=== PATIENT | female | born 1995 | race Caucasian/White ===

== ENCOUNTER 2017-02-26 10:49 | Emergency (ER) | payer OTHER ==
[2017-02-26 10:56] VITALS: BP 123/66
--- NOTE | 2017-02-26 11:23 | ED Physician Documentation ---
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 It has been getting progressively worse over the past 2-1/2 months. She denies any specific injury. [place] ibuprofen and referred to a specialist. She presents now because of increasing pain in her toe. She denies history of similar symptoms in the past. Review of Systems Constitutional: denies: Fever Skin: denies: Rash Musculoskeletal: reports: Extremity pain (Left great toe.) Neurologic: denies: Focal weakness, Numbness PD PAST MEDICAL HISTORY - Past Medical History Past Medical History: No Endocrine/Autoimmune: None - Past Surgical History Past Surgical History: Yes - Present Medications Home Medications: Ambulatory Orders Medication Instructions Recorded Confirmed HYDROcod/ACETAM 5/325 [Ruby 5/325] 1 tab PO Q6H PRN 02/26/17 02/26/17 - Allergies Allergies/Adverse Reactions: Allergies Allergy/AdvReac Type Severity Reaction Status Date / Time No Known Drug Allergies Allergy Verified 02/26/17 10:56 - Social History Does the pt smoke?: No Smoking Status: Never smoker Does the pt drink ETOH?: No Does the pt have substance abuse?: No - Immunizations Immunizations are current?: Yes - POLST Patient has POLST: No PD ED PE NORMAL - Vitals Vital signs reviewed: Yes (normal) - General General: Alert and oriented X 3, Well developed/nourished - HEENT HEENT: Atraumatic - Respiratory Respiratory: No respiratory distress - Derm Derm: No rash - Extremities Extremities: Other (There is swelling of the soft tissue around the distal aspect of the left great toe, more on the medial than the lateral side, consistent with ingrown toenail.) - Neuro Neuro: Alert and oriented X 3, No motor deficit, No sensory deficit Results - Vitals Vitals: Oxygen O2 Source Room air Procedures - General procedure General procedure: Procedure: Excision of ingrown toenail left great toe. Anesthesia: 2% lidocaine digital block. Complications: none - Regional nerve block Nerve block site: Digital - note digit(s) (left great toe) Right / left: Left Nerve block anesthesia: Lidocaine 2% Nerve block aftercare: Excellent anesthesia, Patient tolerated well, No complications PD MEDICAL DECISION MAKING - ED course Complexity details: considered differential, d/w patient ED course: The patient's presentation is significant for ingrown toenail of the left great toe. There is no abscess detected. Treatment in the emergency department included digital block followed by excision of the ingrown toenail. The patient tolerated the procedure well. I discussed with her the expected course of healing, symptomatic treatment and outpatient follow-up, as well as potentially worrisome signs or symptoms that should prompt reevaluation in the emergency department. Departure - Departure Disposition: 01 Home, Self Care Clinical Impression: Ingrown left big toenail Condition: Stable Instructions: ED Ingrown Toenail Excised Follow-Up: ROSE Hearn [Provider Group] Comments: Soak your left foot in warm water at least twice daily for the next week. Keep your left leg elevated as much the time as possible. You can use Tylenol or ibuprofen if needed for discomfort. Follow up with your primary physician within 2 weeks. Call to schedule appointment. Return to the emergency department if you develop increasing redness or swelling of your toe, or otherwise worsening symptoms. Forms: Activity restrictions Discharge Date/Time: 02/26/17 12:06
== END 2017-02-26 12:06 | disposition home or self-care (01) ==
LOC: ED 10:49
DX: L60.0 Ingrowing nail (principal)
CPT/HCPCS: 11765; 99282

== ENCOUNTER 2017-11-01 13:00 | Emergency (ER) | payer OTHER ==
[2017-11-01] MEDS ORDERED: DEXAMETHASONE 10 MG/ML VIAL PO STA (13:44)
[2017-11-01] MEDS ORDERED: CHERRY SYRUP 10 ML UDC PO ONE (14:05)
--- NOTE | 2017-11-01 14:09 | ED Physician Documentation ---
PD HPI HEENT - Stated complaint Stated Complaint: THROAT PX/FEVER - Chief complaint Chief Complaint: Heent - History obtained from History obtained from: Patient, Family - History of Present Illness Timing - onset: How many days ago (3) Timing - duration: Days (3) Timing - details: Gradual onset, Still present Location: Throat Improves: Medication Worsens: Swalllowing Associated symptoms: Congestion, Swollen nodes, Cough Similar symptoms before: Diagnosis (strep) Recently seen: Not recently seen - Additional information Additional information: 22-year-old female has developed a sore throat some trouble swallowing. She has not had much in way of a fever has had a slight cough. Review of Systems Constitutional: denies: Fever Eyes: denies: Decreased vision Ears: denies: Ear pain Nose: reports: Congestion Throat: reports: Sore throat Cardiac: denies: Chest pain / pressure, Palpitations Respiratory: reports: Cough. denies: Dyspnea GI: denies: Vomiting PD PAST MEDICAL HISTORY - Past Medical History Past Medical History: No Endocrine/Autoimmune: None - Past Surgical History Past Surgical History: Yes - Present Medications Home Medications: Ambulatory Orders Medication Instructions Recorded Confirmed Azithromycin [Zithromax] 250 mg PO DAILY #6 tablet 11/01/17 - Allergies Allergies/Adverse Reactions: Allergies Allergy/AdvReac Type Severity Reaction Status Date / Time No Known Drug Allergies Allergy Verified 11/01/17 13:10 - Social History Does the pt smoke?: No Smoking Status: Never smoker Does the pt drink ETOH?: No Does the pt have substance abuse?: No - Immunizations Immunizations are current?: Yes - POLST Patient has POLST: No PD ED PE NORMAL - Vitals Vital signs reviewed: Yes (normal ) - General General: Alert and oriented X 3, No acute distress, Well developed/nourished - HEENT HEENT: Atraumatic, PERRL, EOMI, Ears normal, Other (There are 2+ tonsils with crypts and exudate) - Neck Neck: Supple, no meningeal sign, No bony TTP - Cardiac Cardiac: RRR, No murmur - Respiratory Respiratory: No respiratory distress, Clear bilaterally - Abdomen Abdomen: Soft, Non tender - Back Back: No CVA TTP, No spinal TTP - Derm Derm: Normal color, Warm and dry, No rash - Extremities Extremities: No deformity, No edema - Neuro Neuro: Alert and oriented X 3, iv technician 2-12 intact, No motor deficit, No sensory deficit, Normal speech Eye Opening: Spontaneous Motor: Obeys Commands Verbal: Oriented GCS Score: 15 - Psych Psych: Normal mood, Normal affect Results - Vitals Vitals: Vital Signs - 24 hr 11/01/17 13:06 Temperature 36.2 C L Heart Rate 77 Blood Pressure 121/67 O2 Saturation 99 Oxygen O2 Source Room air - Labs Labs: Laboratory Tests 11/01/17 13:40 Group A Strep Rapid Negative PD MEDICAL DECISION MAKING - ED course Complexity details: reviewed results, re-evaluated patient, considered differential, d/w patient ED course: 22-year-old female with acute tonsillitis with cryptic exudative tonsils has a negative rapid strep she is administered dexamethasone 10 mg orally we will place her on some azithromycin. - Sepsis Event Vital Signs: Vital Signs - 24 hr 11/01/17 13:06 Temperature 36.2 C L Heart Rate 77 Blood Pressure 121/67 O2 Saturation 99 Oxygen O2 Source Room air Departure - Departure Disposition: 01 Home, Self Care Clinical Impression: Tonsillitis Condition: Stable Instructions: ED Tonsillitis Follow-Up: ROSE Hearn [Provider Group] Prescriptions: Azithromycin [Zithromax] 250 mg PO DAILY #6 tablet
[2017-11-01 14:26] VITALS: BP 118/72
== END 2017-11-01 14:26 | disposition home or self-care (01) ==
LOC: ED 13:00
DX: J03.90 Acute tonsillitis, unspecified (principal)
CPT/HCPCS: 87070; 87430; 99283; A9270

== ENCOUNTER 2018-06-03 11:16 | Emergency (ER) | payer OTHER ==
[2018-06-03 11:26] VITALS: BP 119/64
--- NOTE | 2018-06-03 11:44 | ED Physician Documentation ---
PD HPI LOWER EXT INJURY - Stated complaint Stated Complaint: PAIN/2ND TO TOE NAIL REMOVAL - Chief complaint Chief Complaint: Ext Problem - History obtained from History obtained from: Patient - History of Present Illness PD HPI LOW EXT INJURY LOCATION: Left, Toe (great) Type of injury: Other (surgical) Where injury occurred: Work Timing - onset: Today Timing - duration: Hours Timing - details: Abrupt onset, Still present Improved by: Rest Worsened by: Moving, Palpating Similar symptoms before: Diagnosis (ingrown toenail.) Recently seen: Surgery - Additional information Additional information: 22-year-old female had a right ingrown toenail removed today in the she was told to use ibuprofen for pain control. She has had these toenails removed previously and has not done well with pain control with ibuprofen. She is not having adequate pain control with this and her command is asked her to come to the emergency department for pain control. Review of Systems Constitutional: denies: Fever Respiratory: denies: Cough GI: denies: Vomiting Skin: denies: Rash Musculoskeletal: reports: Extremity pain. denies: Neck pain, Back pain Neurologic: denies: Generalized weakness, Focal weakness, Numbness PD PAST MEDICAL HISTORY - Past Medical History Endocrine/Autoimmune: None - Past Surgical History Past Surgical History: Yes - Present Medications Home Medications: Ambulatory Orders Medication Instructions Recorded Confirmed Etonogestrel [Nexplanon] 1 06/03/18 Hydrocodone/Acetaminophen 1 - 2 each PO Q6H PRN #14 tablet 06/03/18 [Hydrocodon-Acetaminophen 5-325] - Allergies Allergies/Adverse Reactions: Allergies Allergy/AdvReac Type Severity Reaction Status Date / Time No Known Drug Allergies Allergy Verified 06/03/18 11:26 - Social History Does the pt smoke?: No Smoking Status: Never smoker Does the pt drink ETOH?: No Does the pt have substance abuse?: No - Immunizations Immunizations are current?: Yes - POLST Patient has POLST: No PD ED PE NORMAL - Vitals Vital signs reviewed: Yes (normal ) - General General: Alert and oriented X 3, Well developed/nourished, Other (Appears to be in pain with medical assistant cardiology tone and flattened affect) - HEENT HEENT: Atraumatic, PERRL, EOMI - Neck Neck: Supple, no meningeal sign - Respiratory Respiratory: No respiratory distress - Derm Derm: Normal color, Warm and dry, No rash - Extremities Extremities: No deformity, No edema, Other (The toenail to the left great toe is missing and the area well.) - Neuro Neuro: Alert and oriented X 3, warp knitting machine operator 2-12 intact, No motor deficit, No sensory deficit, Normal speech Eye Opening: Spontaneous Motor: Obeys Commands Verbal: Oriented GCS Score: 15 - Psych Psych: Normal mood Results - Vitals Vitals: Vital Signs - 24 hr 06/03/18 11:20 Temperature 36 C L Heart Rate 70 Respiratory 16 Rate Blood Pressure 119/64 O2 Saturation 97 Oxygen O2 Source Room air PD MEDICAL DECISION MAKING - ED course Complexity details: considered differential, d/w patient, d/w family ED course: 22-year-old female with inadequate pain control after removal of a toenail. Departure - Departure Disposition: 01 Home, Self Care Clinical Impression: Ingrown left big toenail Instructions: ED Ingrown Toenail Excised Follow-Up: ROSE Hearn [Provider Group] Prescriptions: Hydrocodone/Acetaminophen [Hydrocodon-Acetaminophen 5-325] 1 - 2 each PO Q6H PRN #14 tablet PRN Reason: pain
== END 2018-06-03 12:09 | disposition home or self-care (01) ==
LOC: ED 11:16
DX: L60.0 Ingrowing nail (principal); Z98.890 Other specified postprocedural states
CPT/HCPCS: 99283

== ENCOUNTER 2018-11-28 19:32 | Emergency (ER) | payer OTHER ==
[2018-11-28 19:39] VITALS: BP 122/71
[2018-11-28] MEDS ORDERED: cephALEXin 250 MG CAPSULE PO STA (20:01)
[2018-11-28] MEDS ORDERED: CHERRY SYRUP 10 ML UDC PO ONE (20:01)
[2018-11-28] MEDS ORDERED: DEXAMETHASONE 10 MG/ML VIAL PO STA (20:01)
[2018-11-28] MEDS ORDERED: IBUPROFEN 800 MG TABLET PO STA (20:02)
--- NOTE | 2018-11-28 20:06 | ED Physician Documentation ---
History of Present Illness - Stated complaint Stated Complaint: SORE THROAT - Chief complaint Chief Complaint: Heent - History obtained from History obtained from: Patient - History of Present Illness Timing: How many weeks ago (2 weeks, intermittent) Pain level max: 8 Pain level now: 6 - Additonal information Additional information: 23-year-old female with a sore throat for the past 2 weeks. Waxing and waning. She states that it got better and now has become worse. She complains of bilateral tonsillar swelling and white exudates. Difficulty swallowing. Subjective fevers. No cough. Worse with swallowing. Nothing makes it better Review of Systems Nose: reports: Congestion Throat: reports: Sore throat GI: denies: Nausea, Vomiting, Diarrhea Skin: denies: Rash Musculoskeletal: denies: Neck pain, Back pain Neurologic: denies: Headache PD PAST MEDICAL HISTORY - Past Medical History Past Medical History: No Endocrine/Autoimmune: None - Past Surgical History Past Surgical History: Yes - Present Medications Home Medications: Ambulatory Orders Medication Instructions Recorded Confirmed Etonogestrel [Nexplanon] 1 06/03/18 Hydrocodone/Acetaminophen 1 - 2 each PO Q6H PRN #14 tablet 06/03/18 [Hydrocodon-Acetaminophen 5-325] Cephalexin [Keflex] 500 mg PO Q6H #40 capsule 11/28/18 Ibuprofen [Motrin] 800 mg PO Q8H PRN #30 tablet 11/28/18 - Allergies Allergies/Adverse Reactions: Allergies Allergy/AdvReac Type Severity Reaction Status Date / Time No Known Drug Allergies Allergy Verified 06/03/18 11:26 - Social History Does the pt smoke?: No Smoking Status: Never smoker Does the pt drink ETOH?: No Does the pt have substance abuse?: No - Immunizations Immunizations are current?: Yes - POLST Patient has POLST: No PD ED PE NORMAL - Vitals Vital signs reviewed: Yes - General General: Alert and oriented X 3, No acute distress, Well developed/nourished - HEENT HEENT: PERRL, Ears normal, Moist mucous membranes, Other (Posterior oropharyngeal exam reveals an erythematous oropharynx. Uvula midline. Tonsillar exudates present bilaterally. Normal phonation. No trismus.) - Neck Neck: Supple, no meningeal sign, Other (Shotty anterior lymphadenopathy) - Cardiac Cardiac: RRR - Respiratory Respiratory: No respiratory distress, Clear bilaterally - Abdomen Abdomen: Soft, Non tender, Non distended - Derm Derm: Warm and dry, No rash - Neuro Neuro: Alert and oriented X 3 - Psych Psych: Normal mood, Normal affect Results - Vitals Vitals: Vital Signs - 24 hr 11/28/18 19:34 Temperature 36.6 C Heart Rate 99 Respiratory 18 Rate Blood Pressure 122/71 O2 Saturation 99 Oxygen O2 Source Room air - Labs Labs: Laboratory Tests 11/28/18 19:40 Group A Strep Rapid Negative PD MEDICAL DECISION MAKING - ED course Complexity details: reviewed results, considered differential, d/w patient ED course: Patient with what appears to be clinically strep pharyngitis. Rapid strep is negative, but given the high suspicion clinically, will treat with antibiotics. Also given dexamethasone and Motrin here. Patient is well-appearing, nontoxic. Afebrile. Patient counseled regarding signs and symptoms for which I believe and urgent re-evaluation would be necessary. Patient with good understanding of and agreement to plan and is comfortable going home at this time This document was made in part using voice recognition software. While efforts are made to proofread this document, sound alike and grammatical errors may occur. Departure - Departure Disposition: 01 Home, Self Care Clinical Impression: Tonsillitis Condition: Good Instructions: ED Strep Pharyngitis Poss Follow-Up: MYCHAL BISHOP MD [Primary Care Provider] - Within 1 week (if not better ) Prescriptions: Cephalexin [Keflex] 500 mg PO Q6H #40 capsule Ibuprofen [Motrin] 800 mg PO Q8H PRN #30 tablet PRN Reason: PAIN &/OR FEVER Comments: Fax until gone. Return if you worsen. Follow-up with your doctor within 1 week if not better. Forms: Activity restrictions Discharge Date/Time: 11/28/18 20:16
== END 2018-11-28 20:16 | disposition home or self-care (01) ==
LOC: ED 19:32
DX: J03.90 Acute tonsillitis, unspecified (principal)
CPT/HCPCS: 87070; 87077; 87430; 99283; 99284; A9270

== ENCOUNTER 2018-11-29 19:56 | Emergency (ER) | payer OTHER ==
[2018-11-29] MEDS ORDERED: SODIUM CHLORIDE 0.9% 1,000 ML IV ONE (20:26)
[2018-11-29] MEDS ORDERED: KETOROLAC 30 MG/ML VIAL IVP STA (20:26)
[2018-11-29] MEDS ORDERED: DEXAMETHASONE 10 MG/ML VIAL IVP STA (20:26)
[2018-11-29] MEDS ORDERED: CLINDAMYCIN 900 MG/50 ML 50 ML IV ONE (20:26)
--- NOTE | 2018-11-29 20:45 | ED Physician Documentation ---
History of Present Illness - Stated complaint Stated Complaint: THROAT PX/DIZZINESS - Chief complaint Chief Complaint: Heent - History obtained from History obtained from: Patient - History of Present Illness Pain level max: 7 Pain level now: 7 - Additonal information Additional information: 23-year-old female seen here yesterday and diagnosed with strep throat. Did not fill her antibiotics until this evening. Has not taken anything for pain today. States she feels lightheaded. Worse with swallowing. Nothing makes it better. Review of Systems Constitutional: reports: Fever Respiratory: denies: Cough GI: denies: Vomiting, Diarrhea Skin: denies: Rash Musculoskeletal: denies: Neck pain, Back pain PD PAST MEDICAL HISTORY - Past Medical History Past Medical History: No Endocrine/Autoimmune: None - Past Surgical History Past Surgical History: Yes - Present Medications Home Medications: Ambulatory Orders Medication Instructions Recorded Confirmed Etonogestrel [Nexplanon] 1 06/03/18 Hydrocodone/Acetaminophen 1 - 2 each PO Q6H PRN #14 tablet 06/03/18 [Hydrocodon-Acetaminophen 5-325] Cephalexin [Keflex] 500 mg PO Q6H #40 capsule 11/28/18 Ibuprofen [Motrin] 800 mg PO Q8H PRN #30 tablet 11/28/18 - Allergies Allergies/Adverse Reactions: Allergies Allergy/AdvReac Type Severity Reaction Status Date / Time No Known Drug Allergies Allergy Verified 06/03/18 11:26 - Social History Does the pt smoke?: No Smoking Status: Never smoker Does the pt drink ETOH?: Yes Does the pt have substance abuse?: No - Immunizations Immunizations are current?: Yes - POLST Patient has POLST: No PD ED PE NORMAL - Vitals Vital signs reviewed: Yes - General General: Alert and oriented X 3, No acute distress - HEENT HEENT: Other (Posterior oropharyngeal erythema with tonsillar exudates. Uvula midline. Normal phonation. No trismus. Dry lips) - Neck Neck: Supple, no meningeal sign, Other (Shotty anterior lymphadenopathy) - Cardiac Cardiac: RRR - Respiratory Respiratory: No respiratory distress, Clear bilaterally - Derm Derm: Warm and dry - Neuro Neuro: Alert and oriented X 3 Results - Vitals Vitals: Vital Signs - 24 hr 11/29/18 11/29/18 20:05 21:41 Temperature 37 C Heart Rate 83 71 Respiratory 18 17 Rate Blood Pressure 126/69 113/75 O2 Saturation 100 97 Oxygen O2 Source Room air PD MEDICAL DECISION MAKING - ED course Complexity details: reviewed old records, re-evaluated patient, considered differential, d/w patient ED course: Patient with strep pharyngitis. Appears dehydrated. Given IV fluids, clindamycin and dexamethasone. Also given Toradol. Tolerating p.o. without difficulty. We will continue her medications at home and follow-up with her doctor. No abscess. Patient counseled regarding signs and symptoms for which I believe and urgent re-evaluation would be necessary. Patient with good understanding of and agreement to plan and is comfortable going home at this time This document was made in part using voice recognition software. While efforts are made to proofread this document, sound alike and grammatical errors may occur. Departure - Departure Disposition: 01 Home, Self Care Clinical Impression: Strep pharyngitis Condition: Good Instructions: ED Strep Pharyngitis Conf Follow-Up: your,doctor in 3 days [Other] Comments: Continue the medications as previously prescribed. Return if you worsen. Drink plenty of fluids and rest.
[2018-11-29 21:41] VITALS: BP 113/75
== END 2018-11-29 22:33 | disposition home or self-care (01) ==
LOC: ED 19:56
DX: J02.0 Streptococcal pharyngitis (principal)
CPT/HCPCS: 96365; 96375; 99283

== ENCOUNTER 2019-02-24 15:40 | Emergency (ER) | payer OTHER ==
[2019-02-24 15:48] VITALS: BP 115/69
--- NOTE | 2019-02-24 16:22 | ED Physician Documentation ---
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 Overnight she developed more significant diffuse abdominal pain with dark tarry stools. No history of ulcer disease.) Review of Systems Constitutional: reports: Reviewed and negative Cardiac: reports: Reviewed and negative Respiratory: reports: Reviewed and negative PD PAST MEDICAL HISTORY - Past Medical History Endocrine/Autoimmune: None - Past Surgical History Past Surgical History: Yes - Present Medications Home Medications: Ambulatory Orders Medication Instructions Recorded Confirmed Etonogestrel [Nexplanon] 1 06/03/18 Hydrocodone/Acetaminophen 1 - 2 each PO Q6H PRN #14 tablet 06/03/18 [Hydrocodon-Acetaminophen 5-325] Cephalexin [Keflex] 500 mg PO Q6H #40 capsule 11/28/18 Ibuprofen [Motrin] 800 mg PO Q8H PRN #30 tablet 11/28/18 Omeprazole 20 mg PO DAILY #30 capsule. 02/24/19 - Allergies Allergies/Adverse Reactions: Allergies Allergy/AdvReac Type Severity Reaction Status Date / Time lactose Allergy Unknown Verified 02/24/19 15:47 - Social History Does the pt smoke?: No Smoking Status: Never smoker Does the pt drink ETOH?: Yes Does the pt have substance abuse?: No - Immunizations Immunizations are current?: Yes - POLST Patient has POLST: No PD ED PE NORMAL - Vitals Vital signs reviewed: Yes - General General: Alert and oriented X 3, No acute distress - Abdomen Abdomen: Normal bowel sounds, Soft, Non tender - Female Female : Other (Rectal examination done with Ghislaine BELTRAN present and chaperoning, nontender, small brown stool in the vault) - Neuro Neuro: Alert and oriented X 3, Normal speech - Psych Psych: Normal mood, Normal affect Results - Vitals Vitals: Vital Signs - 24 hr 02/24/19 15:42 Temperature 36.9 C Heart Rate 85 Respiratory 16 Rate Blood Pressure 115/69 O2 Saturation 98 Oxygen O2 Source Room air - Labs Labs: Microbiology 02/24/19 16:49 Occult Blood - Final Stool Laboratory Tests 02/24/19 02/24/19 02/24/19 16:20 16:23 16:23 WBC 6.5 RBC 4.96 Hgb 13.4 Hct 41.5 MCV 83.7 MCH 27.0 MCHC 32.3 RDW 13.5 Plt Count 267 MPV 9.8 Neut # (Auto) 4.2 Lymph # (Auto) 1.7 Falls # (Auto) 0.5 Eos # (Auto) 0.0 Baso # (Auto) 0.0 Absolute Nucleated RBC 0.00 Nucleated RBC % 0.0 Sodium 138 Potassium 3.8 Chloride 103 Carbon Dioxide 26 Anion Gap 9.0 BUN 16 Creatinine 0.8 Estimated GFR (MDRD) 91 Glucose 93 Calcium 9.7 Total Bilirubin 0.5 AST 16 ALT 13 Alkaline Phosphatase 63 Total Protein 8.3 H Albumin 4.7 Globulin 3.6 Albumin/Globulin Ratio 1.3 Lipase 29 Urine Color YELLOW Urine Clarity HAZY Urine pH 5.5 Ur Specific [place] 1.025 Urine Protein NEGATIVE Urine Glucose (UA) NEGATIVE Urine Ketones NEGATIVE Urine Occult Blood NEGATIVE Urine Nitrite NEGATIVE Urine Bilirubin NEGATIVE Urine Urobilinogen 0.2 (NORMAL) Ur Leukocyte Esterase TRACE H Urine RBC 0-5 Urine WBC 6-10 H Ur Squamous Epith Cells FEW Squamous Urine Bacteria Few Ur Microscopic Review INDICATED Urine Culture Comments INDICATED Urine HCG, Qual NEGATIVE PD MEDICAL DECISION MAKING - ED course ED course: 23-year-old woman with ongoing abdominal issues, now some black stool tonight which is of course worrying for upper GI bleed but her H&H and fecal occult blood testing were negative. She is never had upper and lower endoscopies and [place] Departure - Departure Disposition: 01 Home, Self Care Clinical Impression: Black tarry stools Abdominal pain Qualifiers: Abdominal location: generalized Qualified Code(s): R10.84 - Generalized abdominal pain Condition: Good Record reviewed to determine appropriate education?: Yes Instructions: Abdominal Pain Prescriptions: Omeprazole 20 mg PO DAILY #30 capsule. Comments: Call your doctor to arrange a follow-up appointment, make the next available appointment. In the interim, return anytime if worse or if new symptoms develop. Discharge Date/Time: 02/24/19 17:27
[2019-02-24 16:29] LABS: BASOPHILS % (AUTO) 0.5 %; EOSINOPHILS % (AUTO) 0.6 %; HGB - HEMOGLOBIN 13.4 g/dL (12.0-16.0); LYMPHOCYTES # (AUTO) 1.7 10^3/uL (1.5-3.5); LYMPHOCYTES % (AUTO) 26.9 %; MEAN CORPUSCULAR HGB CONC 32.3 g/dL (32.0-36.0); MEAN CORPUSCULAR VOLUME 83.7 fL (81.0-99.0); MEAN PLATELET VOLUME 9.8 fL (7.9-10.8); MONOCYTES # (AUTO) 0.5 10^3/uL (0.0-1.0); MONOCYTES % (AUTO) 7.1 %; NEUTROPHILS # (AUTO) 4.2 10^3/uL (1.5-6.6); NEUTROPHILS % (AUTO) 64.4 %; PLT - PLATELET COUNT 267 10^3/uL (130-450); RED BLOOD COUNT 4.96 10^6/uL (4.20-5.40); RED CELL DISTRIBUTION WIDTH 13.5 % (12.0-15.0); WHITE BLOOD COUNT 6.5 x10^3/uL (4.8-10.8)
[2019-02-24 16:33] LABS: BILIRUBIN,URINE NEGATIVE (NEGATIVE); GLUCOSE, URINE (UA) NEGATIVE (NEGATIVE); KETONES,URINE (UA) NEGATIVE (NEGATIVE); LEUKOCYTE ESTERASE, URINE TRACE (NEGATIVE); NITRITE,URINE NEGATIVE (NEGATIVE); OCCULT BLOOD,URINE NEGATIVE (NEGATIVE); PH,URINE 5.5 PH (5.0-7.5); PROTEIN,URINE NEGATIVE (NEGATIVE); UROBILINOGEN,URINE 0.2 (NORMAL) E.U./dL (NORMAL)
[2019-02-24 16:36] LABS: CLARITY,URINE HAZY (CLEAR); HCG UR QUAL NEGATIVE
[2019-02-24 16:40] LABS: ALBUMIN 4.7 g/dL (3.2-5.5); ALBUMIN/GLOBULIN RATIO 1.3 (1.0-2.2); BILIRUBIN,TOTAL 0.5 mg/dL (0.2-1.0); CALCIUM 9.7 mg/dL (8.5-10.3); CREATININE 0.8 mg/dL (0.4-1.0); TOTAL PROTEIN 8.3 g/dL (6.7-8.2)
[2019-02-24 16:51] LABS: BACTERIA,URINE Few /HPF (None Seen); RBC,URINE 0-5 /HPF (0-5); SQUAMOUS EPITHELIAL CELL,UR FEW Squamous (<= Few)
[2019-02-24] MEDS ORDERED: HYDROcod/ACETAM 5/325 MG TABLET PO STA (16:51)
== END 2019-02-24 17:27 | disposition home or self-care (01) ==
LOC: ED 15:40
DX: R19.5 Other fecal abnormalities (principal); R10.84 Generalized abdominal pain
CPT/HCPCS: 36415; 80053; 81001; 81025; 82272; 83690; 85025; 87086; 99283; A9270; 81003

== ENCOUNTER 2023-09-01 13:56 | Emergency (ER) | payer OTHER ==
[2023-09-01 14:21] VITALS: O2SAT 100
--- NOTE | 2023-09-01 15:32 | ED Physician Documentation ---
History of Present Illness - Stated complaint Stated Complaint: COVID + - Chief complaint Chief Complaint: Resp - Additonal information Additional information: 27-year-old female presents emergency department because her command told her to come to the emergency department for medications to manage her COVID. Patient tested positive for COVID at home about 4 days ago she says that she has been still working with that and has been having some intermittent wheezing and was hoping to have an albuterol inhaler as well as some antinausea medication. Patient says overall she feels like she is doing better but is unable to rest due to work while she is fighting COVID and just wants some additional medications to help her to continue to work. 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 : None HEENT: None Psych: None Musculoskeletal: None Derm: None - Past Surgical History Past Surgical History: Yes - Present Medications Home Medications: Ambulatory Orders Medication Instructions Recorded Confirmed Etonogestrel [Nexplanon] 1 mg ID MAINTENANCE.IV 06/03/18 Albuterol Sulf [Ventolin Hfa 1 - 2 puffs INH Q4HR PRN #1 ea 09/01/23 Inhaler] Ondansetron Odt [Zofran Odt] 4 mg TL Q6H PRN #10 tablet 09/01/23 - Allergies Allergies/Adverse Reactions: Allergies Allergy/AdvReac Type Severity Reaction Status Date / Time lactose Allergy Unknown Verified 09/01/23 14:17 - Social History Does the pt smoke?: No Smoking Status: Never smoker Does the pt drink ETOH?: Yes Does the pt have substance abuse?: No - Immunizations Immunizations are current?: Yes - POLST Patient has POLST: No PD ED PE NORMAL - Vitals Vital signs reviewed: Yes - General General: Alert and oriented X 3, No acute distress, Well developed/nourished - HEENT HEENT: Atraumatic - Neck Neck: Supple, no meningeal sign - Cardiac Cardiac: RRR - Respiratory Respiratory: No respiratory distress, Clear bilaterally - Abdomen Abdomen: Normal bowel sounds, Soft, Non tender Results - Vitals Vitals: Vital Signs - 24 hr 09/01/23 09/01/23 14:09 15:41 Temperature 36.8 C 36.3 C L Heart Rate 78 52 L Respiratory 16 18 Rate Blood Pressure 114/58 L 102/79 O2 Saturation 100 100 Oxygen O2 Source Room air PD Medical Decision Making - ED course ED course: 27-year-old female presents emergency department for COVID. A prescription of Zofran was given to her to help her manage her nausea symptoms she has no nausea at this point in time so Zofran not given here. She also was hoping for an albuterol inhaler which I had given her lung sounds clear bilaterally no history of asthma. Prescription sent to her preferred pharmacy return precautions given all questions answered patient safe for discharge. Departure - Departure Disposition: Home, Self Care Clinical Impression: COVID-19 Instructions: ED Viral Syndrome Ch Prescriptions: Albuterol Sulf [Ventolin Hfa Inhaler] 1 - 2 puffs INH Q4HR PRN #1 ea PRN Reason: Wheezing Ondansetron Odt [Zofran Odt] 4 mg TL Q6H PRN #10 tablet PRN Reason: Nausea / Vomiting Comments: Thank you for trusting us with your care. Continue to get plenty of rest drink plenty of fluids alternate between Tylenol ibuprofen for pain and discomfort. I have sent a prescription for an inhaler to your preferred pharmacy on file which was [facility] in [place] as well as some Zofran. Get plenty of rest drink plenty of fluids eat a healthy well-balanced diet to help your body recover from COVID. Forms: PCP List Discharge Date/Time: 09/01/23 15:41
[2023-09-01 15:50] VITALS: BP 102/79
== END 2023-09-01 15:41 | disposition home or self-care (01) ==
LOC: ED 13:56
DX: U07.1 COVID-19 (principal); R11.0 Nausea; Z79.899 Other long term (current) drug therapy
CPT/HCPCS: 99282; 99283